=== PATIENT | female | born 1980 | race Hispanic/Latino ===

== ENCOUNTER 2018-10-04 13:38 | Outpatient (CLI) | payer OTHER ==
--- NOTE | 2018-10-06 13:02 | ULT ---
EXAM: OB ultrasound COMPARISON: None HISTORY: female. Evaluate size, dates, and anatomy. TECHNIQUE: Multiplanar grayscale and color Doppler images were obtained in a transabdominal ult rasound. FINDINGS: There is a single live intrauterine with heart rate of 153 bpm. A survey wa s performed which is unremarkable. The head, intracranial structures, heart, stomach, kidneys, umbilical cord, umbilical cord insertion, spine, face, and extremities were evaluated and were unrema rkable. Estimated weight is 438 g. Average age of the fetus based off today's examination is 21 weeks 3 days. BPD 5.20 cm -- 21 weeks 5 days HC 19.57 cm -- 21 weeks 5 days AC 16.55 cm -- 21 weeks 4 days FL 3.65 cm -- 21 weeks 4 days The placenta is posterior/fundal in location without focal abnormality. FRANKLIN is 19.9 cm which is merly l. The cervix is normal in length. There is no evidence of placenta previa. IMPRESSION: Single live intrauterine with estimated age of 21 weeks 3 days.
== END 2018-10-04 13:39 | disposition home or self-care (01) ==
LOC: NAV ULT 13:38
PROVIDERS: ATTEND Family Medicine
DX: O09.892 Supervision of other high risk pregnancies, second trimester (principal); Z3A.21 21 weeks gestation of pregnancy
CPT/HCPCS: 76805